=== PATIENT | female | born 1955 | race Caucasian/White ===

== ENCOUNTER 2021-11-20 10:45 | Inpatient (IN) | payer MEDICARE, BC ==
[~2021-11-20] VITALS: Ht 175.3 cm; Wt 100.0 kg
[2021-11-20 11:37] LABS: BASOPHILS # (AUTO) 0.1 X10'3 (0-0.2); BASOPHILS % (AUTO) 0.5 % (0-1); EOSINOPHILS # (AUTO) 0.2 X10'3 (0-0.9); HEMATOCRIT 33.3 % (35.0-45.0); HEMOGLOBIN 10.5 g/dl (12.0-16.0); LYMPHOCYTES % (AUTO) 17.8 % (21-51); MEAN CORPUSCULAR HEMOGLOBIN 24.7 PG (27.0-31.0); MEAN CORPUSCULAR HGB CONC 31.6 g/dL (33.0-36.5); MEAN CORPUSCULAR VOLUME 78.2 FL (78-98); MEAN PLATELET VOLUME 8.2 FL (7.4-10.4); MONOCYTES # (AUTO) 0.8 X10'3 (0-0.9); MONOCYTES % (AUTO) 7.2 % (2-12); NEUTROPHILS # (AUTO) 8.1 X10'3 (1.8-7.7); NEUTROPHILS % (AUTO) 72.5 % (42-75); PLATELET COUNT 545 X10'3 (140-440); RED BLOOD COUNT 4.26 X10'6 (4.20-5.60); WHITE BLOOD COUNT 11.2 X10'3 (4.5-11.0)
[2021-11-20 11:48] LABS: ALANINE AMINOTRANSFERASE 8 U/L (12-78); ALBUMIN 2.4 G/DL (3.4-5.0); ALBUMIN/GLOBULIN RATIO 0.4 (1.1-1.5); ALKALINE PHOSPHATASE 124 IU/L (46-116); ANION GAP 7 (8-16); ASPARTATE AMINO TRANSFERASE 9 U/L (10-37); BILIRUBIN,TOTAL 0.2 MG/DL (0.1-1.0); BLOOD UREA NITROGEN 14 MG/DL (7-18); BUN/CREATININE RATIO 13.7 (6.6-38.0); CALCIUM 9.1 MG/DL (8.5-10.1); CHLORIDE 102 MMOL/L (99-107); CREATININE 1.02 MG/DL (0.40-0.90); GLUCOSE 142 MG/DL (70-104); SODIUM 138 MMOL/L (135-145); TOTAL CARBON DIOXIDE 29.2 MMOL/L (24-32); TOTAL PROTEIN 8.5 G/DL (6.4-8.2); eGFR 54 ML/MIN
[2021-11-20 11:56] LABS: POTASSIUM 4.6 MMOL/L (3.5-5.1)
[2021-11-20] MEDS ORDERED: dexamethasone sod phosphate 10mg/ml inj IV STA (14:26)
[2021-11-20] MEDS ORDERED: CefTRIAXone 2gm/D5W 50ml BAG 50 ML IV ONE (14:30)
[2021-11-20] MEDS ORDERED: ipratropium/albuterol 3ml nebule NEB ONE (14:30)
[2021-11-20] MEDS ORDERED: iohexol 350MG/ML 100ml bottle IV ONE (14:39)
[2021-11-20] MEDS ORDERED: VENL75TA4 PO (16:26)
[2021-11-20] MEDS ORDERED: CLON1TAB95 PO (16:26)
[2021-11-20] MEDS ORDERED: VALA500T41 PO (16:26)
[2021-11-20] MEDS ORDERED: ESOM40CA49 PO (16:26)
[2021-11-20] MEDS ORDERED: PRAZ1CAP5 PO (16:26)
[2021-11-20] MEDS ORDERED: OLAN10TA73 PO (16:26)
[2021-11-20] MEDS ORDERED: HYDR-3972 PO (16:26)
[2021-11-20] MEDS ORDERED: acetaminophen 325mg tablet PO PRN ×2 (17:35)
[2021-11-20] MEDS ORDERED: magnesium Cl slow-release 64mg tablet PO PRN (17:35)
[2021-11-20] MEDS ORDERED: potassium Cl 20 mEq SR tablet PO PRN ×2 (17:35)
[2021-11-20] MEDS ORDERED: ondansetron/PF 4mg/2ml inj IV PRN (17:35)
[2021-11-20] MEDS ORDERED: magnesium hydroxide 30ml (MOM) UD suspension PO PRN (17:35)
[2021-11-20] MEDS ORDERED: HYDROcodone/acetaminophen 10/325mg tab PO PRN (17:35)
[2021-11-20] MEDS ORDERED: magnesium 2GM in 50ml NS 50 ML IV PRN (17:35)
[2021-11-20] MEDS ORDERED: bisacodyl 10mg suppository rectal RC PRN (17:35)
[2021-11-20] MEDS ORDERED: morphine 2 MG/ML inj. syringe IV PRN ×2 (17:35)
[2021-11-20] MEDS ORDERED: potassium CL 10mEq/100ml bag 100 ML IV PRN (17:35)
[2021-11-20] MEDS ORDERED: diphenhydrAMINE 25mg capsule PO PRN (17:35)
[2021-11-20] MEDS ORDERED: magnesium 4gm in 100ml NS 100 ML IV PRN (17:35)
[2021-11-20] MEDS ORDERED: acetaminophen 650mg rectal suppository RC PRN (17:35)
[2021-11-20] MEDS ORDERED: mag hydrox/Alum hydrox/simeth 30ml oral suspension PO PRN (17:35)
[2021-11-20] MEDS: normal saline 1000ml 1,000 ML IV SCH (18:18)
[2021-11-20] MEDS: piperacillin/tazo 3.375gm/50ml 50 ML IV SCH (18:18)
[2021-11-20 18:39] LABS: CLARITY,URINE SLIGHTLY CLOUDY (Clear); COLOR,URINE YELLOW (Yellow); GLUCOSE, URINE NEGATIVE (Neg); KETONES,URINE NEGATIVE (Neg); LEUKOCYTE ESTERASE ,URINE NEGATIVE (Neg); NITRITES, URINE POSITIVE (Neg); OCCULT BLOOD,URINE NEGATIVE (Neg); PROTEIN,URINE NEGATIVE (Neg); UROBILINOGEN,URINE 0.2 E.U/dL (0.2-1.0)
[2021-11-20 18:41] LABS: HEMOGLOBIN A1C 6.8 % (4.5-6.2)
[2021-11-20 18:49] LABS: UA COLLECTION TYPE CLN CATCH MIDSTREAM
[2021-11-20 18:58] LABS: BACTERIA,URINE 1+ /HPF (Neg); MUCUS STRANDS FEW /LPF (Neg); RBC,URINE 0-2 /HPF (0-2); SQUAMOUS EPITHELIAL CELL,UR FEW /LPF (FEW); WBC,URINE 30-50 /HPF (0-4)
[2021-11-20] MEDS: ipratropium/albuterol 3ml nebule NEB SCH ×2 (19:00→23:38)
[2021-11-20] MEDS ORDERED: vancomycin 1,750 MG in NS 350ml IV soln IV ONE (19:30)
[2021-11-20] MEDS: K and/or MAG REPLACEMENT MC SCH (20:00)
[2021-11-20] MEDS: docusate sod 100mg capsule PO SCH (20:00)
[2021-11-20] MEDS: methylPREDNISolone sod succ 125mg/2ml vial IV SCH (21:20)
[2021-11-20] MEDS: clonazePAM 1mg tablet PO SCH (21:23)
[2021-11-20] MEDS: prazosin 1mg capsule PO SCH (21:24)
[2021-11-20] MEDS: olanzapine 10mg tablet PO SCH (21:25)
[2021-11-20] MEDS: heparin, porcine 5000 units/ml vial SQ SCH (21:26)
[2021-11-20 22:00] VITALS: BP 115/71
[2021-11-21 02:00] VITALS: BP 126/77
[2021-11-21] MEDS: ipratropium/albuterol 3ml nebule NEB SCH ×6 (02:56→23:48)
[2021-11-21] MEDS: methylPREDNISolone sod succ 125mg/2ml vial IV SCH ×4 (03:07→21:34)
[2021-11-21] MEDS: normal saline 1000ml 1,000 ML IV SCH ×3 (03:35→23:45)
[2021-11-21] MEDS: HYDROcodone/acetaminophen 5mg/325mg tablet PO PRN (05:09)
[2021-11-21 06:00] VITALS: BP 119/75
[2021-11-21 06:01] LABS: ALANINE AMINOTRANSFERASE 9 U/L (12-78); ALBUMIN 2.3 G/DL (3.4-5.0); ALBUMIN/GLOBULIN RATIO 0.5 (1.1-1.5); ALKALINE PHOSPHATASE 121 IU/L (46-116); ANION GAP 10 (8-16); ASPARTATE AMINO TRANSFERASE 6 U/L (10-37); BILIRUBIN,TOTAL 0.1 MG/DL (0.1-1.0); BLOOD UREA NITROGEN 14 MG/DL (7-18); CALCIUM 8.5 MG/DL (8.5-10.1); CHLORIDE 104 MMOL/L (99-107); CHOL/HDL RATIO 3.5 (0.00-4.99); CHOLESTEROL 107 MG/DL (0-200); GLUCOSE 200 MG/DL (70-104); HDL CHOLESTEROL 31 MG/DL (35-60); LDL CHOLESTEROL 48 MG/DL (50-100); MAGNESIUM 2.4 MG/DL (1.5-2.4); PHOSPHORUS 4.5 MG/DL (2.3-4.5); POTASSIUM 4.2 MMOL/L (3.5-5.1); SODIUM 139 MMOL/L (135-145); TOTAL CARBON DIOXIDE 25.5 MMOL/L (24-32); TOTAL PROTEIN 7.2 G/DL (6.4-8.2); TRIGLYCERIDES 84 MG/DL (20-135); eGFR 55 ML/MIN
[2021-11-21 06:35] LABS: BASOPHILS % (AUTO) 0 % (0-1); EOSINOPHILS % (AUTO) 0 % (0-6); HEMATOCRIT 31.2 % (35.0-45.0); HEMOGLOBIN 9.9 g/dl (12.0-16.0); LYMPHOCYTES # (AUTO) 0.7 X10'3 (1.1-4.8); LYMPHOCYTES % (AUTO) 9.6 % (21-51); MEAN CORPUSCULAR HEMOGLOBIN 24.9 PG (27.0-31.0); MEAN CORPUSCULAR HGB CONC 31.8 g/dL (33.0-36.5); MEAN CORPUSCULAR VOLUME 78.1 FL (78-98); MEAN PLATELET VOLUME 8.1 FL (7.4-10.4); MONOCYTES % (AUTO) 0.4 % (2-12); NEUTROPHILS # (AUTO) 6.7 X10'3 (1.8-7.7); PLATELET COUNT 506 X10'3 (140-440); RED BLOOD COUNT 3.99 X10'6 (4.20-5.60); RED CELL DISTRIBUTION WIDTH 16.8 % (11.5-14.5); WHITE BLOOD COUNT 7.5 X10'3 (4.5-11.0)
[2021-11-21] MEDS: VANCOMYCIN 1GM/200ML IVPB 200 ML IV SCH ×2 (07:27→21:28)
[2021-11-21] MEDS: heparin, porcine 5000 units/ml vial SQ SCH ×2 (07:27→23:39)
[2021-11-21] MEDS: piperacillin/tazo 3.375gm/50ml 50 ML IV SCH ×2 (07:27→16:58)
[2021-11-21] MEDS: valacyclovir 500mg tablet PO SCH (07:28)
[2021-11-21] MEDS: venlafaxine 37.5mg tablet PO SCH ×2 (07:28→07:39)
[2021-11-21] MEDS: docusate sod 100mg capsule PO SCH ×2 (07:28→20:00)
[2021-11-21] MEDS: K and/or MAG REPLACEMENT MC SCH ×2 (07:29→20:00)
[2021-11-21] MEDS: clonazePAM 1mg tablet PO SCH ×2 (07:39→21:26)
[2021-11-21] MEDS: pantoprazole 40mg Tablet.DR PO SCH (07:40)
--- NOTE | 2021-11-21 08:24 | NUR ---
spoke with pharmacist that loading dose of vancomycin from ER wasnt given, found in patient's belonging bag.. advised not to administer the said medication. 0800 dose of vancomycin already given by this RN. will continue to monitor.
[2021-11-21 11:00] VITALS: BP 130/61
[2021-11-21 15:00] VITALS: BP 143/64
--- NOTE | 2021-11-21 15:25 | NUR ---
Dietary TC: Pt reports allergy to all fruits and vegetable, eggs, and "anything from the ground" per RN. Pt seen by RD and reports the same w/ exceptions of: orange juice, cranberry juice, oatmeal/cream of wheat preferably w/ sugar, and puddings/jellos. Pt reports does not eat sauces as well. Dietary notified of pt preferences. ANDREEA paged MD regarding Multivitamin/mineral supplement for pt given reported food allergies. Addendum: 11/21/21 at [address] Amended: Links added.
[2021-11-21 18:00] VITALS: BP 143/74
--- NOTE | 2021-11-21 18:43 | NUR ---
Patient in room PCU 3025. I have received report from ARIEL Perez and had the opportunity to ask questions and assume patient care.
--- NOTE | 2021-11-21 19:03 | NUR ---
Problems reprioritized. Patient report given, questions answered & plan of care reviewed with Willie GEORGE.
[2021-11-21] MEDS: olanzapine 10mg tablet PO SCH (21:26)
[2021-11-21] MEDS: prazosin 1mg capsule PO SCH (21:26)
[2021-11-21 22:00] VITALS: BP 142/76
[2021-11-21] MEDS: loperamide 2mg capsule PO PRN (23:38)
[2021-11-22] VITALS (7 sets, daily range): BP systolic 135–173; BP diastolic 56–90
[2021-11-22] MEDS: methylPREDNISolone sod succ 125mg/2ml vial IV SCH ×4 (01:20→20:18)
[2021-11-22] MEDS: piperacillin/tazo 3.375gm/50ml 50 ML IV SCH ×3 (01:21→16:56)
[2021-11-22 06:31] LABS: BASOPHILS % (AUTO) 0.1 % (0-1); EOSINOPHILS % (AUTO) 0 % (0-6); HEMATOCRIT 30.5 % (35.0-45.0); HEMOGLOBIN 9.6 g/dl (12.0-16.0); LYMPHOCYTES # (AUTO) 0.9 X10'3 (1.1-4.8); LYMPHOCYTES % (AUTO) 8.8 % (21-51); MEAN CORPUSCULAR HEMOGLOBIN 24.6 PG (27.0-31.0); MEAN CORPUSCULAR HGB CONC 31.6 g/dL (33.0-36.5); MEAN CORPUSCULAR VOLUME 77.9 FL (78-98); MEAN PLATELET VOLUME 8.1 FL (7.4-10.4); MONOCYTES # (AUTO) 0.1 X10'3 (0-0.9); MONOCYTES % (AUTO) 1.5 % (2-12); NEUTROPHILS # (AUTO) 8.7 X10'3 (1.8-7.7); NEUTROPHILS % (AUTO) 89.6 % (42-75); PLATELET COUNT 521 X10'3 (140-440); RED BLOOD COUNT 3.91 X10'6 (4.20-5.60); RED CELL DISTRIBUTION WIDTH 16.9 % (11.5-14.5); WHITE BLOOD COUNT 9.7 X10'3 (4.5-11.0)
--- NOTE | 2021-11-22 06:38 | NUR ---
Problems reprioritized. Patient report given, questions answered & plan of care reviewed with ARIEL Quinonez.
[2021-11-22 06:49] LABS: ALANINE AMINOTRANSFERASE 11 U/L (12-78); ALBUMIN 2.3 G/DL (3.4-5.0); ALBUMIN/GLOBULIN RATIO 0.5 (1.1-1.5); ALKALINE PHOSPHATASE 106 IU/L (46-116); ANION GAP 11 (8-16); ASPARTATE AMINO TRANSFERASE 5 U/L (10-37); BILIRUBIN,TOTAL 0.1 MG/DL (0.1-1.0); BLOOD UREA NITROGEN 15 MG/DL (7-18); CALCIUM 8.9 MG/DL (8.5-10.1); CHLORIDE 105 MMOL/L (99-107); GLUCOSE 204 MG/DL (70-104); MAGNESIUM 2.4 MG/DL (1.5-2.4); PHOSPHORUS 3.3 MG/DL (2.3-4.5); POTASSIUM 4.5 MMOL/L (3.5-5.1); SODIUM 142 MMOL/L (135-145); TOTAL CARBON DIOXIDE 25.6 MMOL/L (24-32); TOTAL PROTEIN 6.5 G/DL (6.4-8.2); eGFR 55 ML/MIN
[2021-11-22] MEDS: ipratropium/albuterol 3ml nebule NEB SCH ×5 (07:38→23:35)
[2021-11-22] MEDS: docusate sod 100mg capsule PO SCH ×2 (08:00→20:00)
[2021-11-22] MEDS: K and/or MAG REPLACEMENT MC SCH ×2 (08:00→20:00)
[2021-11-22] MEDS: heparin, porcine 5000 units/ml vial SQ SCH ×2 (08:13→20:18)
[2021-11-22] MEDS: loperamide 2mg capsule PO PRN ×3 (08:14→21:37)
[2021-11-22] MEDS: valacyclovir 500mg tablet PO SCH (08:14)
[2021-11-22] MEDS: pantoprazole 40mg Tablet.DR PO SCH (08:14)
[2021-11-22] MEDS: clonazePAM 1mg tablet PO SCH ×2 (08:14→20:16)
[2021-11-22] MEDS: venlafaxine 37.5mg tablet PO SCH (08:14)
[2021-11-22] MEDS: HYDROcodone/acetaminophen 5mg/325mg tablet PO PRN ×3 (08:14→20:16)
[2021-11-22] MEDS: normal saline 1000ml 1,000 ML IV SCH ×2 (09:35→20:21)
--- NOTE | 2021-11-22 11:18 | NUR ---
1100 svn refused . no sob observed. pt requests to sleep
[2021-11-22] MEDS: VANCOMYCIN 1GM/200ML IVPB 200 ML IV SCH ×2 (15:08→15:29)
--- NOTE | 2021-11-22 18:00 | NUR ---
SHIFT CHANGE REPORT FROM YOHANNES GEORGE
[2021-11-22] MEDS: olanzapine 10mg tablet PO SCH (20:17)
[2021-11-22] MEDS: prazosin 1mg capsule PO SCH (20:17)
[2021-11-23] MEDS: piperacillin/tazo 3.375gm/50ml 50 ML IV SCH ×2 (00:02→08:43)
[2021-11-23] MEDS: HYDROcodone/acetaminophen 5mg/325mg tablet PO PRN (00:07)
[2021-11-23 02:00] VITALS: BP 144/70
[2021-11-23] MEDS: VANCOMYCIN 1GM/200ML IVPB 200 ML IV SCH (03:00)
[2021-11-23] MEDS: ipratropium/albuterol 3ml nebule NEB SCH ×2 (03:00→07:33)
[2021-11-23] MEDS: normal saline 1000ml 1,000 ML IV SCH (05:38)
[2021-11-23 06:00] VITALS: BP 147/81
--- NOTE | 2021-11-23 06:00 | NUR ---
Patient in room PCU 3025. I have received report from Jo and had the opportunity to ask questions and assume patient care.
--- NOTE | 2021-11-23 06:05 | NUR ---
SHIFT REPORT GIVEN TO ELVIE GEORGE
[2021-11-23 07:25] LABS: BASOPHILS % (AUTO) 0 % (0-1); EOSINOPHILS % (AUTO) 0 % (0-6); HEMATOCRIT 30.8 % (35.0-45.0); HEMOGLOBIN 9.8 g/dl (12.0-16.0); LYMPHOCYTES # (AUTO) 1.1 X10'3 (1.1-4.8); LYMPHOCYTES % (AUTO) 14.4 % (21-51); MEAN CORPUSCULAR HEMOGLOBIN 24.6 PG (27.0-31.0); MEAN CORPUSCULAR HGB CONC 31.7 g/dL (33.0-36.5); MEAN CORPUSCULAR VOLUME 77.7 FL (78-98); MEAN PLATELET VOLUME 7.6 FL (7.4-10.4); MONOCYTES # (AUTO) 0.4 X10'3 (0-0.9); MONOCYTES % (AUTO) 4.7 % (2-12); NEUTROPHILS # (AUTO) 6.3 X10'3 (1.8-7.7); NEUTROPHILS % (AUTO) 80.9 % (42-75); PLATELET COUNT 542 X10'3 (140-440); RED BLOOD COUNT 3.96 X10'6 (4.20-5.60); RED CELL DISTRIBUTION WIDTH 17.4 % (11.5-14.5); WHITE BLOOD COUNT 7.7 X10'3 (4.5-11.0)
[2021-11-23] MEDS: K and/or MAG REPLACEMENT MC SCH (08:00)
[2021-11-23] MEDS: docusate sod 100mg capsule PO SCH (08:00)
[2021-11-23 08:07] LABS: ALANINE AMINOTRANSFERASE 13 U/L (12-78); ALBUMIN 2.4 G/DL (3.4-5.0); ALBUMIN/GLOBULIN RATIO 0.6 (1.1-1.5); ALKALINE PHOSPHATASE 99 IU/L (46-116); ANION GAP 11 (8-16); ASPARTATE AMINO TRANSFERASE 10 U/L (10-37); BILIRUBIN,TOTAL 0.2 MG/DL (0.1-1.0); BLOOD UREA NITROGEN 19 MG/DL (7-18); BUN/CREATININE RATIO 17.9 (6.6-38.0); CALCIUM 8.6 MG/DL (8.5-10.1); CHLORIDE 107 MMOL/L (99-107); CREATININE 1.06 MG/DL (0.40-0.90); GLUCOSE 162 MG/DL (70-104); MAGNESIUM 2.4 MG/DL (1.5-2.4); PHOSPHORUS 3.5 MG/DL (2.3-4.5); POTASSIUM 4.6 MMOL/L (3.5-5.1); SODIUM 144 MMOL/L (135-145); TOTAL CARBON DIOXIDE 25.6 MMOL/L (24-32); TOTAL PROTEIN 6.5 G/DL (6.4-8.2); eGFR 52 ML/MIN
[2021-11-23] MEDS: pantoprazole 40mg Tablet.DR PO SCH (08:42)
[2021-11-23] MEDS: valacyclovir 500mg tablet PO SCH (08:42)
[2021-11-23] MEDS: loperamide 2mg capsule PO PRN (08:42)
[2021-11-23] MEDS: clonazePAM 1mg tablet PO SCH (08:42)
[2021-11-23] MEDS: venlafaxine 37.5mg tablet PO SCH (08:43)
[2021-11-23] MEDS: heparin, porcine 5000 units/ml vial SQ SCH (08:43)
[2021-11-23] MEDS: methylPREDNISolone sod succ 125mg/2ml vial IV SCH (08:44)
[2021-11-23] MEDS ORDERED: AZIT500T9 PO (09:08)
[2021-11-23] MEDS ORDERED: ALBU8.5H17 INH (09:08)
[2021-11-23] MEDS ORDERED: CEFD300C3 PO (09:08)
[2021-11-23] MEDS ORDERED: PRED10TA23 PO (09:08)
--- NOTE | 2021-11-23 11:49 | NUR ---
Patient discharged from facility. Discharged instruction provided to patient about medication and follow up. Patient verbalized understanding. IV line discontinue. Patient left with all belonging.
[2021-11-24] MEDS ORDERED: VANCOMYCIN LEVEL IV ONE (02:30)
== END 2021-11-23 11:59 | disposition home health service (06) | DRG 871 ==
LOC: ER 10:45 → ED HOLD 18:07 → PCU 3S 21:45
PROVIDERS: ADMIT Family Medicine; ATTEND Family Medicine
PROC: B32T1ZZ Computerized Tomography (CT Scan) of Left Pulmonary Artery using Low Osmolar Contrast (ICD-10-PCS; principal; 2021-11-20)
PROC: B3201ZZ Computerized Tomography (CT Scan) of Thoracic Aorta using Low Osmolar Contrast (ICD-10-PCS; 2021-11-20)
PROC: B32S1ZZ Computerized Tomography (CT Scan) of Right Pulmonary Artery using Low Osmolar Contrast (ICD-10-PCS; 2021-11-20)
DX: A41.9 Sepsis, unspecified organism (principal); J18.9 Pneumonia, unspecified organism; J96.00 Acute respiratory failure, unspecified whether with hypoxia or hypercapnia; J44.1 Chronic obstructive pulmonary disease with (acute) exacerbation; J44.0 Chronic obstructive pulmonary disease with (acute) lower respiratory infection; Z60.2 Problems related to living alone; E66.9 Obesity, unspecified; F32.A Depression, unspecified; F41.9 Anxiety disorder, unspecified; G89.4 Chronic pain syndrome; K21.9 Gastro-esophageal reflux disease without esophagitis; Z20.822 Contact with and (suspected) exposure to COVID-19; Z87.891 Personal history of nicotine dependence; Z90.710 Acquired absence of both cervix and uterus; Z88.7 Allergy status to serum and vaccine; Z91.012 Allergy to eggs; Z68.32 Body mass index [BMI] 32.0-32.9, adult; Z71.3 Dietary counseling and surveillance
CPT/HCPCS: 36415; 71045; 71250; 71275; 80053; 80061; 81001; 83036; 83605; 83735; 83880; 84100; 84145; 84484; 85025; 87040; 87081; 87088; 87635; 93005; 93306; 94640; 94760; 97161; 97530; 99285; G0378; J0696; J1100; J1644; J2543; J2930; J3370; J7030; Q0163; Q9967

== ENCOUNTER 2025-01-05 15:08 | Outpatient (CLI) | payer MEDICARE, BC ==
[~2025-01-05 15:08] MED LIST: CELE-127 PO; CLON1TAB95 PO; DULO30CA52 PO; FENT1PAT13 TOP; GABA-530 PO; LEVO50CA4 PO; OXYB5TAB21 PO; PRAZ1CAP5 PO; TRAZ-256 PO; VALA500T41 PO; VENL75TA4 PO
== END 2025-01-05 23:59 | disposition home or self-care (01) ==
LOC: RAD 15:08
PROVIDERS: ATTEND Nurse Practitioner Family
DX: M48.56XA Collapsed vertebra, not elsewhere classified, lumbar region, initial encounter for fracture (principal); M54.50 Low back pain, unspecified
CPT/HCPCS: 72070; 72100